=== PATIENT | female | born 1955 | race Caucasian/White ===

== ENCOUNTER → 2017-03-05 | Outpatient (CLI) | payer BC | END | disposition home or self-care (01) | LOC: CFH 15:55 | PROVIDERS: ATTEND Family Medicine | DX: Z12.31 Encounter for screening mammogram for malignant neoplasm of breast (principal) | CPT/HCPCS: G0202 ==

== ENCOUNTER → 2018-03-12 | Outpatient (CLI) | payer OTHER | END | disposition home or self-care (01) | LOC: CFH 16:03 | PROVIDERS: ATTEND Family Medicine | DX: Z12.31 Encounter for screening mammogram for malignant neoplasm of breast (principal) | CPT/HCPCS: 77067 ==

== ENCOUNTER 2019-04-25 15:59 | Outpatient (CLI) | END 2019-04-25 23:59 | disposition home or self-care (01) | LOC: CFH 15:59 | PROVIDERS: ATTEND Family Medicine | DX: Z12.31 Encounter for screening mammogram for malignant neoplasm of breast (principal); N64.89 Other specified disorders of breast | CPT/HCPCS: 77067 ==

== ENCOUNTER → 2020-05-22 | Outpatient (CLI) | payer OTHER | END | disposition home or self-care (01) | LOC: CFH 14:52 | PROVIDERS: ATTEND Family Medicine | DX: Z12.31 Encounter for screening mammogram for malignant neoplasm of breast (principal) | CPT/HCPCS: 77063; 77067 ==